=== PATIENT | female | born 1945 | race Caucasian/White ===

== ENCOUNTER 2019-01-05 10:38 | Emergency (ER) | payer MEDICARE ==
[2019-01-05 11:05] VITALS: BP 160/80
--- NOTE | 2019-01-05 11:23 | UC ---
Respiratory Complaint HPI - HPI Summary HPI Summary: 73 year old female presents with complaint of cough over the past 2 weeks. No associated fever, chills, c/p nor sob. Notes brownish phlegm with cough. Tried Mucinex otc without relief. is currently in short term rehab, has pneumonia. - History of Current Complaint Chief Complaint: UCRespiratory Stated Complaint: COUGH CONGESTION Time Seen by Provider: 01/05/19 11:16 Hx Obtained From: Patient Onset/Duration: Gradual Onset, Lasting Weeks - over the past 2 weeks. Pain Intensity: 0 Associated Signs And Symptoms: Positive: Wheezing. Negative: Dyspnea, Fever, Chills, Pleuritic Chest Pain, Hemoptysis - Risk Factors Pulmonary Embolism Risk Factors: Negative Tuberculosis Risk Factors: Negative - Allergies/Home Medications Allergies/Adverse Reactions: Allergies Allergy/AdvReac Type Severity Reaction Status Date / Time No Known Allergies Allergy Verified 01/05/19 11:00 Home Medications: Home Medications Atorvastatin* [Lipitor 40 MG*] 40 mg PO DAILY 01/05/19 [History Confirmed ] Calcium Citrate TAB* [Citracal TAB*] 1,200 mg PO DAILY 01/05/19 [History Confirmed 01/05/19] Cholecalciferol (Vitamin D3) [Vitamin D3] 2,000 unit PO DAILY 01/05/19 [History Confirmed 01/05/19] Gabapentin CAP(*) [Neurontin 300 CAP(*)] 600 mg PO BID 01/05/19 [History Confirmed 01/05/19] Herbal Laxative 4 tab PO DAILY 01/05/19 [History] Levothyroxine TAB* [Synthroid 88 MCG TAB*] 88 mcg PO DAILY 01/05/19 [History Confirmed 01/05/19] Metoprolol Tartrate TAB* [Lopressor TAB*] 75 mg PO DAILY 01/05/19 [History Confirmed 01/05/19] Multivitamin [Multivitamins] 1 cap PO DAILY 01/05/19 [History Confirmed 01/05/19 ] Nortriptyline CAP* [Pamelor CAP*] 50 mg PO BEDTIME 01/05/19 [History Confirmed 01/05/19] Venlafaxine EXT RELEASE CAP* [Effexor Xr CAP*] 150 mg PO DAILY 01/05/19 [ History Confirmed 01/05/19] clonazePAM TAB(*) [Klonopin TAB(*)] 1 mg PO BEDTIME 01/05/19 [History Confirmed 01/05/19] PMH/Surg Hx/FS Hx/Imm Hx Previously Healthy: Yes Endocrine History: Hypothyroidism Cardiovascular History: Hypertension Other Respiratory History: denies COPD nor asthma - Surgical History Surgical History: Yes Surgery Procedure, Year, and Place: tubal growth. tubal ligation. hysterctomy - Family History Known Family History: Positive: Non-Contributory - Social History Alcohol Use: None Substance Use Type: None Smoking Status (MU): Never Smoked Tobacco Review of Systems All Other Systems Reviewed And Are Negative: Yes Constitutional: Negative: Fever, Chills Skin: Negative: Rash, Bruising Eyes: Negative: Blurred Vision, Diplopia, Eye Redness ENT: Negative: Sore Throat, Nasal Discharge Respiratory: Positive: Cough. Negative: Shortness Of Breath Cardiovascular: Negative: Palpitations, Chest Pain Gastrointestinal: Negative: Abdominal Pain, Vomiting, Diarrhea, Nausea Genitourinary: Positive: Other - stress incontinence with coughing. Negative: Dysuria Motor: Negative: Decreased ROM, Weakness Neurovascular: Negative: Decreased Sensation Musculoskeletal: Positive: Myalgia - generalized Neurological: Negative: Headache, Weakness, Paresthesia Is Patient Immunocompromised?: No Physical Exam Triage Information Reviewed: Yes Appearance: Well-Appearing Vital Signs: Initial Vital Signs Temp 97 F 01/05/19 11:01 Pulse 81 01/05/19 11:01 Resp 17 01/05/19 11:01 BP 160/80 01/05/19 11:01 Pulse Ox 98 01/05/19 11:01 Vital Signs Reviewed: Yes Eyes: Positive: Conjunctiva Clear ENT: Positive: Normal ENT inspection, Pharynx normal, TMs normal. Negative: Nasal congestion Neck: Positive: Supple, Nontender, No Lymphadenopathy Respiratory: Positive: Chest non-tender, Rhonchi - right upper lobe, Wheezing - slight expiratory bilat. Negative: Respiratory distress, Crackles Cardiovascular: Positive: RRR, No Murmur Abdomen Description: Positive: Nontender, Soft Musculoskeletal: Positive: Strength Intact, ROM Intact Neurological: Positive: Alert, Muscle Tone Normal Skin: Negative: Rashes Diagnostics - Radiology No standard instances Radiology Interpretation Completed By: Radiologist Summary of Radiographic Findings: NAD Respiratory Course/Dx - Differential Dx/Diagnosis Differential Diagnosis/HQI/PQRI: Bronchitis, Lower Resp Infection Provider Diagnosis: Pneumonia Discharge ED - Sign-Out/Discharge Documenting (check all that apply): Patient Departure All imaging exams completed and their final reports reviewed: Yes - Discharge Plan Condition: Stable Disposition: HOME Prescriptions: DOXYcycline CAP(*) [DOXYcycline 100MG CAP(*)] 100 mg PO BID 10 Days #20 cap Patient Education Materials: Community Acquired Pneumonia (ED) Referrals: Shanthi MARRERO,Katya Araiza [Primary Care Provider] - Additional Instructions: Continue Mucinex as needed for cough, take antibiotics as prescribed. Follow-up with your primary car provider if your symptoms persist or worsen. - Billing Disposition and Condition Condition: STABLE Disposition: Home
== END 2019-01-05 12:21 | disposition home or self-care (01) ==
LOC: UCCORT 10:38
DX: J18.9 Pneumonia, unspecified organism (principal); E03.9 Hypothyroidism, unspecified; I10 Essential (primary) hypertension
CPT/HCPCS: 71046; 99202; G0463